=== PATIENT | male | born 1990 | race Two or more races ===

== ENCOUNTER 2017-03-31 23:24 | Emergency (ER) | payer SELFPAY ==
[~2017-03-31] VITALS: Ht 165.1 cm; Wt 54.4 kg
[2017-04-01 01:54] VITALS: BP 110/68
[2017-04-01 01:55] VITALS: BP 110/68
--- NOTE | 2017-04-01 03:28 | Emergency Room Report ---
History of Present Illness General Chief Complaint: Headache Source: Patient Present Illness HPI 26YOM walk-in with 4 months of concern for "soft spot" to back of head Fell "back hard 4 months ago" with ?LOC C/o intermittent headaches since Denies neck pain, change in vision, AMS, nausea/vomiting Not on ASA, AC, other meds Feels well otherwise Allergies: Coded Allergies: No Known Allergies (Unverified , 03/31/17) Patient History Past Medical History: none Past Surgical History: none Pertinent Family History: none Social History: Denies: smoking, alcohol use, drug use Immunizations: UTD Reviewed Nursing Documentation: PMH: Agreed, PSxH: Agreed Nursing Documentation-PMH Past Medical History: No Stated History Review of Systems All Other Systems: negative except mentioned in HPI Physical Exam Vital Signs Date Time Temp Pulse Resp B/P (MAP) Pulse Ox O2 Delivery O2 Flow Rate FiO2 03/31/17 23:41 98.4 58 18 105/66 98 Room Air Sp02 EP Interpretation: reviewed, normal General Appearance: normal inspection, well appearing, no apparent distress, alert, GCS 15, non-toxic Head: normocephalic, atraumatic Eyes: bilateral eye PERRL, bilateral eye EOMI ENT: normal ENT inspection, hearing grossly normal, normal voice Neck: normal inspection, full range of motion, supple, no bony tend Respiratory: normal inspection, lungs clear, normal breath sounds, no respiratory distress, no retraction, no wheezing Cardiovascular #1: regular rate, rhythm, no edema Gastrointestinal: normal inspection, normal bowel sounds, non tender, soft, no guarding, no hernia Musculoskeletal: normal inspection, back normal, normal range of motion, Roel' s Sign negative Neurologic: normal inspection, alert, oriented x3, responsive, dye weigher helper III-XII nml as tested, motor strength/tone normal, speech normal Psychiatric: normal inspection, judgement/insight normal, mood/affect normal Skin: normal inspection, normal color, no rash Medical Decision Making Diagnostic Impression: Primary Impression: Headache Qualified Codes: R51 - Headache ER Course VSS. Afebrile No external signs of abscess, skull fx, infection CT head negative for mass/tumor, shift Reassured patient ?concussion Advised PMD followup for Neuro referral Last Vital Signs Date Time Temp Pulse Resp B/P (MAP) Pulse Ox O2 Delivery O2 Flow Rate FiO2 04/01/17 01:55 98.4 80 18 110/68 98 Room Air Status: improved Disposition: HOME, SELF-CARE Condition: Improved Referrals: NOT CHOSEN IPA/,REFERRING (PCP) Patient Instructions: General Headache Without Cause KELECHI HEBERT M.D. Apr 01, 2017 03:28
--- NOTE | 2017-04-01 08:54 | Diagnostic Imaging Report ---
Indication: PAIN Technique: Continuous helical CT scanning of the head was performed without intravenous contrast material. Axial and coronal 5 mm sections were generated. Radiation dose was minimized using automated exposure control Dose: Total Dose Length Product - DLP [address] Dose Index - CTDIvol(s) 70.38 mGy. Comparison: None Findings: The ventricular system is normal in size and configuration. There is no shift of midline structures. No abnormal extra-axial fluid collections are noted. There is no evidence of intracerebral bleeding. No other abnormal high or low density areas are noted within the brain. Intact calvarium. Visualized orbits and sinuses are unremarkable. Impression: Normal CT scan of the head without contrast material. This agrees with the preliminary interpretation provided overnight by [facility]. The CT scanner at [facility] is accredited by the [employer] and the scans are performed using protocols designed to limit radiation exposure to as low as reasonably achievable to attain images of sufficient resolution adequate for diagnostic evaluation.
== END 2017-04-01 01:56 | disposition home or self-care (01) ==
LOC: EMR 04-01 00:18
DX: R51 Headache (principal)
CPT/HCPCS: 70450; 99284